=== PATIENT | female | born 1960 | race Caucasian/White ===

== ENCOUNTER → 2016-10-04 | Outpatient (CLI) | payer OTHER ==
[~2016-10-04] MED LIST: ADVAIR 250-501 EAC1 IH; ADVIL200 M2 PO; ALBUTEROL17 GM INH; ALTOPREV20 MG PO; ASPIRIN EC81 M1 PO; ASPIRIN81 M2 PO; FLEXERIL10 MG PO; HYDROCHLOROTHIA25 MG PO; IBUPROFEN800 MG PO; LISINOPRIL10 MG PO; LISINOPRIL2.5 MG PO; LOVASTATIN20 M1 PO; MELOXICAM15 MG PO; NASACORT10.8 ML NS; TYLENOL325 M1 PO; ZYRTEC10 M2 PO
--- NOTE | ~2016-10-04 | CR156 ---
[facility]. [facility] A Service of [facility] & [facility] RADIOLOGY TEXT RESULTS PATIENT: JEB MEYERS LOCATION: [facility] : 62 UNIT #: [id number] AGE: [address]: Brian Mckeon MD SEX: F ORDER DR: [id number] [address] [id number] O MR#: [id number] Acc #: [id number] NAME: JEB MEYERS : 1960 SEX: F STUDY DATE/TIME: 10/04/2016 11:26 UNIT: SRAD ROOM: STUDY DESCRIPTION: CR Humerus Min 2 View Lt Attending Physician: Brian Mckeon M.D. Referring Physician: Brian Mckeon M.D. Ordering Physician: Brian Mckeon M.D. Primary Care Physician: [facility] MEDICAL IMAGING REPORT This report is preliminary unless electronic signature is present. EXAM Left humerus 2 views 10/04/2016 HISTORY Left arm pain, twisting type pain and left arm for 1 month. No known injury. FINDINGS There is no evidence of fracture, dislocation, or radiopaque foreign body. No focal bone lesions are seen. IMPRESSION Normal humerus. Dictated by... Harvey Garcia M.D. THIS IS AN ELECTRONICALLY VERIFIED REPORT Harvey Garcia M.D. at 10/06/2016 8:03 AM GREGORIA/florencia TD: 10/04/2016 17:59 JOB #: [id number] MEDICAL IMAGING REPORT Page 1 of 1
== END | disposition home or self-care (01) ==
LOC: SRAD 11:22
DX: M25.522 Pain in left elbow (principal)
CPT/HCPCS: 73060